=== PATIENT | female | born 1980 | race Hispanic/Latino ===

== ENCOUNTER 2017-12-06 21:54 | Day surgery (SDC) | payer OTHER ==
[2017-12-06 22:40] VITALS: BP 115/59; TEMP 98.8; BMI 32.2
--- NOTE | 2017-12-06 23:02 | PDOC.LDHP ---
Labor and Delivery H&P Chief complaint: other (dysuria and hematuria) HPI: Ms Rodas is a 37yo at 20.0 weeks by LMP presenting with dysuria and hematuria that started yesterday. Also endorses hesitancy. Reports mild abdominal pain, denies flank pain. Pt reports a small amount of blood on the toilet paper. FM (-), LOF (-), Contractions (-) Current gestational age (weeks): 20 (20.0) Due date: 04/25/18 Dating criteria: last menstrual period Grav: 4 Para: 3 (2942) OB History Details: 3 prior pregnancies with no complications born term by Current complications: none Current medications: pre-nannette vitamins Previous surgical history: none Social history: none - Physical Exam Vital signs reviewed and normal: yes General: NAD Heart: RRR Lungs: CTAB Abdomen: gravid Extremeties: no edema FHT: category 1 (145/moderate/no accels or decels) - OB Labs Blood type: unknown RH: unknown Antibody Screen: unknown HIV: unknown RPR: unknown HEPSAg: unknown 1 hour GCT: unknown GBS: unknown Urine drug screen: not done - Assessment 37yo female at 20.0 wks presenting with dysuria and hematuria c/w symptomatic cystitis. No evidence of upper urinary tract infection. - Plan -: Symptomatic cystitis in Straight cath UA with reflux micro, culture if indicated 1L bolus LR Depending on UA results treat empirically with Macrobid <Mirlande Gomes - Last Filed: 12/06/17 23:53> - Plan Plan: other (Patient seen. Patient has full handwritten Faculty H&P in chart.) <Antoine Crenshaw - Last Filed: 12/07/17 05:45> Allergies/Adverse Reactions: Allergies Allergy/AdvReac Type Severity Reaction Status Date / Time No Known Allergies Allergy Unverified 12/06/17 22:33
--- NOTE | 2017-12-06 23:28 | PDOC.EVN ---
Event Note - Event Note Event Note: @3586: Faculty note: patient seen. 37 yo at 20 weeks 0 days, no VB, no LOF, c/o burning on urination. Also with hesitancy and urgency. Residents first evaluated. 20 weeks 0 days with complaint of dysuria, no fever no CVAT. Suspect cystitis. UA with reflex micro pending (cath UA). Patient has full handwritten H&P in progress notes. Please see for full information
[2017-12-06] MEDS ORDERED: Lactated Ringer's 1,000 ML IV SCH (23:30)
[2017-12-06 23:37] LABS: Bilirubin Negative (Negative); Blood, Urine Large (Negative); Clarity CLOUDY (Clear); Glucose, Urine (Dipstick) Negative (Negative); Leukocyte Moderate (Negative); Nitrite Negative (Negative); Protein, Urine (Dipstick) Negative (Neg-Trace); Specific Gravity, Urine 1.019 (1.002-1.036); Urobilinogen 0.2 mg/dL (0.2-1.0)
[2017-12-06 23:38] LABS: Bacteria/HPF 2+ HPF (None Seen); Pathc Cast-AUWi Flag 0.72 (0-2.49); RBC/HPF GREATER THAN 50-TNTC HPF (0-3); Squamous Epithelial None Seen HPF (0-3); WBC/HPF 21-50 HPF (0-3)
[2017-12-06 23:46] LABS: Hyaline Casts/LPF NONE SEEN LPF (0-3 Hyaline)
[2017-12-07] MEDS ORDERED: Nitrofurantoin Monohyd/M-Cryst 100 MG CAP PO SCH (00:01)
--- NOTE | 2017-12-07 00:10 | PDOC.EVN ---
Event Note - Event Note Event Note: UA with evidence UTI. RX with macrobid x 7 days
== END 2017-12-07 00:50 | disposition home or self-care (01) ==
LOC: L&D/OP 21:54
PROVIDERS: ATTEND Obstetrics & Gynecology
DX: O23.12 Infections of bladder in pregnancy, second trimester (principal); Z3A.20 20 weeks gestation of pregnancy; Z37.9 Outcome of delivery, unspecified
CPT/HCPCS: 51701; 81003; 81015; 87077; 87086; 87186; 96360; 99283

== ENCOUNTER 2019-07-18 12:56 | Emergency (ER) | payer OTHER ==
[2019-07-18 13:33] LABS: Bilirubin Negative (Negative); Blood, Urine Negative (Negative); Clarity Clear (Clear); Glucose, Urine (Dipstick) Normal (Negative); Leukocyte Negative Leu/uL (Negative); Nitrite Negative (Negative); Protein, Urine (Dipstick) Negative (Neg-Trace); Urobilinogen Normal mg/dL (Less than 2)
[2019-07-18 13:53] LABS: #Eosinphils 0.1 thou/uL (0.0-0.7); #Lymphocytes 1.8 thou/uL (1.20-3.40); #Monocytes 0.4 thou/uL (0.11-0.59); #Neutrophils 5.8 thou/uL (1.40-6.50); %Basophils 0.6 % (0.0-1.0); %Eosinophils 1.2 % (0.0-10.0); %Lymphocytes 22.1 % (21.0-51.0); %Monocytes 5.4 % (0.0-10.0); %Neutrophils 70.7 % (42.0-75.0); Hemoglobin 11.6 g/dL (12.0-16.0); Mean Corpuscular HGB CONC 32.8 g/dL (32.0-36.0); Mean Corpuscular Hemoglobin 27.3 pg (27.0-31.0); Mean Corpuscular Volume 83.2 fL (78.0-98.0); Mean Platelet Volume 8.8 fL (7.4-10.4); Platelet Count 277 thou/uL (130-400); RBC Distribution Width 14.3 % (11.5-14.5); Red Blood Cell (RBC) Count 4.25 mill/uL (4.20-5.40); White Blood Cell (WBC) Count 8.1 thou/uL (4.8-10.8)
[2019-07-18 14:11] LABS: ALT (SGPT) 22 U/L (8-55); AST (SGOT) 17 U/L (5-34); Albumin 3.7 g/dL (3.5-5.0); Alkaline Phosphatase 85 U/L (40-110); Anion Gap 13 mmol/L (10-20); BUN (Urea Nitrogen) 7 mg/dL (7.0-18.7); Bilirubin, Total 0.2 mg/dL (0.2-1.2); Calc. Creatinine Clearance 0 mL/min (70-130); Calcium 8.7 mg/dL (7.8-10.44); Carbon Dioxide 18 mmol/L (22-29); Chloride 110 mmol/L (98-107); Estimated GFR-MDRD Greater than 90; Globulin 2.7 g/dL (2.4-3.5); Glucose 81 mg/dL (70-105); Potassium 3.9 mmol/L (3.5-5.1); Protein, Total 6.4 g/dL (6.0-8.3); Sodium 137 mmol/L (136-145)
--- NOTE | 2019-07-18 14:34 | ULT ---
OB ULTRASOUND: 07/17/28 HISTORY: female with slight vaginal bleeding. TECHNIQUE: Multiplanar john scale and color Doppler images were obtained in a transabdominal ultrasound. S pectral analysis of the Doppler waveforms of the visualized ovaries were performed. FINDINGS: There is an intrauterine gestational sac. This contains a pole with crown-rump length of 2.84 c m. This estimates gestational age at 9 weeks, 5 days. A heart rate is detected at 162 beats per minute. A 6.7 cm fibroid is seen inferior to the gestational sac within the uterus. No free fluid is seen in the pelvis. The right ovary was not visualized. The left ovary is normal in appearance and demonstrates normal internal flow. IMPRESSION: 1. Single live intrauterine with estimated age of 9 weeks, 5 days. 2. Uterine fibroid. POS: EAA
== END 2019-07-18 15:09 | disposition home or self-care (01) ==
LOC: ERS 12:56
DX: O20.0 Threatened abortion (principal); Z3A.08 8 weeks gestation of pregnancy
CPT/HCPCS: 36415; 76856; 80053; 81003; 84702; 85025; 86900; 86901; 93976

== ENCOUNTER 2020-02-06 12:18 | Outpatient (CLI) | payer OTHER ==
[2020-02-09 00:12] LABS: SARS-CoV-2 MS2 Positive; SARS-CoV-2 N Gene Negative; SARS-CoV-2 S Gene Negative; SARS-CoV-2 by NAA Not Detected (Not Detected); SARS-CoV-2 orf1ab Negative
== END 2020-02-06 12:19 | disposition home or self-care (01) ==
LOC: LABBT 12:18
PROVIDERS: ATTEND Family Medicine
DX: Z20.828 Contact with and (suspected) exposure to other viral communicable diseases (principal)
CPT/HCPCS: 87635; U0003

== ENCOUNTER 2020-02-11 05:23 | Inpatient (IN) | payer MEDICAID, OTHER, SELFPAY ==
[2020-02-11] MEDS ORDERED: Promethazine HCl 25 MG/ML VIAL IM PRN ×2 (05:39→10:05)
[2020-02-11] MEDS ORDERED: Ondansetron PF 4 MG/2 ML Vial IVP PRN ×3 (05:39→12:06)
[2020-02-11] MEDS ORDERED: hydrALAZINE 20 MG/ML VIAL SLOW IVP PRN ×2 (05:39→12:06)
[2020-02-11] MEDS ORDERED: Lactated Ringer's 1,000 ML IV SCH (05:45)
[2020-02-11 05:57] VITALS: BMI 37.8
[2020-02-11] MEDS ORDERED: Azithromycin 500 MG in Sodium Chloride 0.9% 250 ML 250 ML IVPB SCH (06:00)
[2020-02-11] MEDS ORDERED: Bicitra 30 ML UDCUP PO SCH (06:00)
[2020-02-11] MEDS ORDERED: CEFAZOLIN 2 GM in Premix Bag 1 BAG IVPB SCH (06:00)
[2020-02-11 06:12] LABS: Hemoglobin 13.2 g/dL (12.0-16.0); Mean Corpuscular HGB CONC 34.1 g/dL (32.0-36.0); Mean Corpuscular Hemoglobin 29.3 pg (27.0-31.0); Mean Corpuscular Volume 85.8 fL (78.0-98.0); Mean Platelet Volume 8.9 fL (7.4-10.4); Platelet Count 244 thou/uL (130-400); RBC Distribution Width 13.9 % (11.5-14.5); Red Blood Cell (RBC) Count 4.52 mill/uL (4.20-5.40); White Blood Cell (WBC) Count 9.1 thou/uL (4.8-10.8)
--- NOTE | 2020-02-11 06:29 | PDOC.FPROB ---
FMR OB H&P: HPI - History of Present Illness Chief Complaint: rLTCS Indentification: History of Present Illness: 40YO @ 39WGA presenting for a rLTCS. Reports regular movement. No LOF/VB/VD or contractions. Denies any complications this other than a UTI earlier in the . Denies any CLINTON, vision changes, chest pain, SOB, or edema. Primary Care Physician: YESSI Gregorio FMR OB H&P: Current - Care : 5 Para: 4004 Gestational age: 39 weeks - OB Labs Blood type: A RH: positive Antibody Screen: negative HIV: negative RPR: negative HepBsAg: negative Rubella: immune Gonorrhea: negative Chlamydia: negative A1c: WNLs GBS: negative H&H: 13.2/38.8 today Platelets: 244 today - First Trimester Ultrasound First trimester: sIUP. Dating c/w LMP. JERED 02/18/2020 - Additional Ultrasound Additional: growth scan on 12/26/19: 51.2% by Hadlock, breech, fundal placenta FMR OB H&P: History - Past Medical History PMH: obesity - OB History OB History: 3 post-term SVDs 1 pLTCS for severe pre-e & NRFHTS @ 39 weeks Hx SGA in prior - [employer] MEMBER History [employer] MEMBER History: Pap NILM/HPV neg 11/2017 - Surgical History Sx History: LTCS x1 - Social History Social History: No TAD - Family History Family History: Paternal grandmother uterine CA & maternal aunt breast CA FMR OB H&P: Medications - Current Home Medications: Medication Instructions Recorded Confirmed Type Aspirin [Ecotrin Low Strength] 81 mg PO DAILY 02/11/20 02/11/20 History Vitamin 1 tablet PO DAILY 02/11/20 02/11/20 History Allergies/Adverse Reactions: Allergies Allergy/AdvReac Type Severity Reaction Status Date / Time No Known Allergies Allergy Verified 02/11/20 05:57 FMR OB H&P: ROS - Review of Systems General: denies: fever/chills, weight/appetite/sleep changes Eyes: denies: vision changes ENT: denies: nasal congestion, sore throat Cardiovascular: denies: chest pain, edema Respiratory: denies: cough, shortness of breath Gastrointestinal: denies: abdominal pain, nausea, vomiting Genitourinary (Female): denies: dysuria, hematuria, vaginal discharge, vaginal bleeding, contractions Musculoskeletal: denies: swelling, arthritis/arthralgias Neurologic: denies: headache Integumentary: denies: itching, rash Psychological: denies: depression, anxiety FMR OB H&P: Vital Signs - Maternal Vital signs: Vital Signs - First Documented Temp Pulse Resp BP 98.0 F 68 14 120/73 02/11/20 05:47 02/11/20 05:47 02/11/20 05:47 02/11/20 05:47 - Heart Tones Baseline: 130 Variability: moderate Acceleration: present Deceleration: absent Category: category 1 Olivarez contractions every: none noted FMR OB H&P: Physical Exam - Physical Exam General: NAD, awake, alert and oriented HEENT: normocephalic and atraumatic, MMM, grossly normal vision, grossly normal hearing Neck: supple, FROM Heart: RRR, normal S1/S2, no murmurs/rubs/gallops General: CTAB, no respiratory distress Abdomen: gravid Musculoskeletal: normal gait and station, FROM in all four extremities Neurological: cranial nerves II through XII intact, sensation to pain,touch and proprioception grossly normal, no focal deficit Psychiatric: intact recent and remote memory, good judgement and insight, normal mood and affect - Pelvic Exam Vulva: normal hair distribution, appropriate reji stage Membranes: intact Presentation: cephalic, oblique FMR OB H&P: Results - Labs Lab results: Laboratory Results - last 24 hr 02/11/20 05:55 WBC 9.1 RBC 4.52 Hgb 13.2 Hct 38.8 MCV 85.8 MCH 29.3 MCHC 34.1 RDW 13.9 Plt Count 244 MPV 8.9 FMR OB H&P: A/P - Problem List (1) Term Current Visit: Yes Status: Acute Code(s): Z34.90 - ENCNTR FOR SUPRVSN OF NORMAL , UNSP, UNSP TRIMESTER (2) Previous section complicating Current Visit: Yes Status: Acute Code(s): O34.219 - MATERNAL CARE FOR UNSP TYPE SCAR FROM PREVIOUS DEL (3) Obesity Current Visit: Yes Status: Acute Code(s): E66.9 - OBESITY, UNSPECIFIED (4) History of pre-eclampsia in prior , currently Current Visit: Yes Status: Acute Code(s): O09.299 - SUPRVSN OF PREG W POOR REPRODCTV OR OBSTET HISTORY, UNSP TRI (5) History of prior with SGA Current Visit: Yes Status: Acute Code(s): Z87.59 - PERSONAL HISTORY OF COMP OF PREG, CHLDBRTH AND THE PUERP Disposition: 40YO @ 39 WGA presenting for a rLTCS. rLTCS w/ RRS: - Initially indicated for not only h/p prior section but for breech presentation as well. Fetus is oblique, cephalic on bedside sono today. FHTs reassuring with bsseline 130s & accels, good variability, no decels. Maternal VS WNLs. Will proceed with planned WAQAR rLTCS. Hx pre-e: - Has been on ASA for PPX this with no BP issues. Will monitor BPs closely during admission. Hx SGA in prior : - Has been following with MFM this w/ last growth scan per chart review on 12/26/19 WNLs w/ 51.2% by [place]. AMA: Has been on ASA PPX & following w/ MFM. Negative NIPT. Grandmultip: Typed and crossed 2U PRBCs prior to surgery. Obesity: - Aware, A1c & TSH WNLs w/ IOB labs. Will encourage weight loss PP. FH of uterine & breast CA: - Aware, approved for RRS to be done in C/S. Discussion: Date/Time: 02/11/20 5379 This H&P was discussed with Dr. Olivo who agrees with the above documentation and plan. Addendum - Attending - Attending Attestation Date/Time: 02/11/20 2107 I personally evaluated the patient and discussed the management with Dr. Gregorio. I agree with the History, Examination, Assessment and Plan documented above with any addition or exceptions noted below. Discussed risks of above procedures and ensured all questions answered. She desires to proceed.
[2020-02-11 06:54] LABS: HBSAg Index 0.13 S/CO (0-0.99); Hep B Surf Ag Non-Reactive S/CO (NonReactive)
[2020-02-11 06:55] LABS: Syphilis Antibody Nonreactive (Nonreactive); Syphilis Antibody Index 0.03 S/CO (<1.00 Non-Reactive)
[2020-02-11] MEDS ORDERED: Dexamethasone 4 mg/ml Vial ONE (07:59)
[2020-02-11] MEDS ORDERED: PHENYLEPHRINE-NS 100 MCG/ML 10 ML SYRINGE ONE (07:59)
[2020-02-11] MEDS ORDERED: Ketorolac Tromethamine 30 MG/ML VIAL ONE (07:59)
[2020-02-11] MEDS ORDERED: Oxytocin 10 UNITS/ML VIAL ONE (07:59)
[2020-02-11] MEDS ORDERED: Ondansetron PF 4 MG/2 ML Vial ONE (07:59)
[2020-02-11] MEDS ORDERED: ePHEDrine 50 MG/ML VIAL ONE (07:59)
[2020-02-11] MEDS ORDERED: Morphine PF 10 MG/10 ML VIAL ONE (08:00)
[2020-02-11] MEDS ORDERED: Carboprost 250 MCG/ML AMP ONE (08:55)
[2020-02-11] MEDS ORDERED: Methylergonovine 0.2 MG/ML VIAL ONE (08:55)
[2020-02-11] MEDS ORDERED: Ketorolac Tromethamine 30 MG/ML VIAL IVP PRN (10:05)
[2020-02-11] MEDS ORDERED: Promethazine HCl 25 MG SUPP PR PRN (10:05)
[2020-02-11] MEDS ORDERED: Naloxone HCl 0.4 mg/ml Vial IV PRN (10:05)
[2020-02-11] MEDS ORDERED: diphenhydrAMINE 50 MG/ML VIAL IVP PRN (10:05)
[2020-02-11] MEDS ORDERED: HYDROmorphone 2 MG/ML VIAL SLOW IVP PRN (10:05)
[2020-02-11] MEDS ORDERED: Meperidine HCl/PF 25 MG/ML VIAL SLOW IVP PRN (10:05)
[2020-02-11] MEDS ORDERED: Ondansetron HCl/PF 4 MG/2 ML Vial IVP PRN (10:05)
[2020-02-11] MEDS ORDERED: L&D-Morphine 4 MG/ML VIAL SLOW IVP PRN (10:05)
[2020-02-11] MEDS ORDERED: Naloxone HCl 0.4 mg/ml Vial IVP PRN ×2 (10:05)
[2020-02-11] MEDS ORDERED: Communication Order-Pharmacy FS SCH (10:15)
[2020-02-11] MEDS ORDERED: Ketorolac Tromethamine 30 MG/ML VIAL IVP SCH (10:15)
[2020-02-11] MEDS ORDERED: Lanolin Ointment 7 GM TUBE TOP PRN (12:06)
--- NOTE | 2020-02-11 14:34 | PDOC.BPN ---
- Brief Progress Note Encounter Date: 02/11/20 Encounter Time: 14:00 S: Pt resting well, states pain is well controlled. bonding well with . denies SOB, CP, CLINTON. has not been up to walk yet. O: vitals: BP: 113/60, 97.7 F temp, 79 HR, 18 RR. gen: resting, NAD heart: RRR, no M/G/R lungs: CTAB, no respiratory distress, good air movement ext: neg homans sign abd: bandage over surgical incision clean and dry. Appropriate TTP. Firm uterine fundus at umbilicus. A&P: Post op approx 4 hrs from rLTCS and RRS - pt tolerating pain well, continue norco Q4H, PRN, bowel regimen and motrin. - hayward out once able to ambulate - tolerating diet well, continue to advance as tolerated. - vitals Q4
[2020-02-11] MEDS: Ibuprofen 800 MG TAB PO SCH ×2 (18:07→20:41)
[2020-02-11] MEDS: Docusate Calcium (SURFAK) 240 MG CAP PO SCH (20:41)
[2020-02-11] MEDS ORDERED: Ferrous Sulfate 325 MG TAB PO SCH (21:00)
[2020-02-12] MEDS: Ibuprofen 800 MG TAB PO SCH ×3 (04:35→20:24)
--- NOTE | 2020-02-12 06:11 | PDOC.OBPPN ---
FMR OB PN: Subj - Interval History Hospital Day: 2 Day: 1 Chief Complaint: none Indentification: G5 now P5005 who is PP day #1 s/p rLTCS w/ RRS Interval History: Tolerating PO, ambulating, & voiding normally. Pain somewhat controlled. FMR OB PN: Obj - Maternal Vital signs: BP: 85/52 HR: 76 RR: 16 Tmax: 98.5F Pox: 96% on RA Wt: 84 kg - Urine output I&O: 02/10/20 02/11/20 02/12/20 06:59 06:59 06:59 Output Total 5158 Balance -5158 - Lochia Lochia: WNLs - Pain Management Pain scale: 7 Intervention: oral medication FMR OB PN: Exam - Physical Exam General: NAD, awake, alert and oriented HEENT: normocephalic and atraumatic, MMM, grossly normal vision, grossly normal hearing Neck: supple, FROM Heart: RRR, normal S1/S2, no murmurs/rubs/gallops, no edema General: CTAB, no respiratory distress Abdomen: soft, fundus(cm) (firm just below umbilicus), bowel sound present Musculoskeletal: normal gait and station, FROM in all four extremities Neurological: cranial nerves II through XII intact, sensation to pain,touch and proprioception grossly normal, no focal deficit Skin: no rash, good tugor : incision healing well, no erythema, no edema, no drainage, appropriately tender Psychiatric: intact recent and remote memory, good judgement and insight, normal mood and affect - Pelvic Exam : no discharge, no edema, normal lochia FMR OB PN: Data - Labs Lab results: Laboratory Results - last 24 hr 02/11/20 02/11/20 02/11/20 05:55 05:55 05:55 WBC 9.1 RBC 4.52 Hgb 13.2 Hct 38.8 MCV 85.8 MCH 29.3 MCHC 34.1 RDW 13.9 Plt Count 244 MPV 8.9 Syphilis IgG/IgM Ab Nonreactive Hep Bs Antigen Non-Reactive Blood Type Antibody Screen Crossmatch 02/11/20 05:55 WBC RBC Hgb Hct MCV MCH MCHC RDW Plt Count MPV Syphilis IgG/IgM Ab Hep Bs Antigen Blood Type A POSITIVE Antibody Screen NEGATIVE Crossmatch See Detail FMR OB PN: A/P - Problem List (1) Term Current Visit: Yes Status: Resolved Code(s): Z34.90 - ENCNTR FOR SUPRVSN OF NORMAL , UNSP, UNSP TRIMESTER (2) Previous section complicating Current Visit: Yes Status: Chronic Code(s): O34.219 - MATERNAL CARE FOR UNSP TYPE SCAR FROM PREVIOUS DEL (3) Obesity Current Visit: Yes Status: Acute Code(s): E66.9 - OBESITY, UNSPECIFIED (4) History of pre-eclampsia in prior , currently Current Visit: Yes Status: Chronic Code(s): O09.299 - SUPRVSN OF PREG W POOR REPRODCTV OR OBSTET HISTORY, UNSP TRI (5) History of prior with SGA Current Visit: Yes Status: Chronic Code(s): Z87.59 - PERSONAL HISTORY OF COMP OF PREG, CHLDBRTH AND THE PUERP (6) care following delivery Current Visit: Yes Status: Acute Code(s): Z39.2 - ENCOUNTER FOR ROUTINE FOLLOW-UP Disposition: 40YO who is PP day #1 s/p rLTCS w/ RRS @ 39 WGA. PP day #1 s/p rLTCS w/ RRS: - Patient is tolerating PO, ambulating, & voiding normally this AM. Reports normal lochia similar to menstruation & pain is somewhat controlled with PO meds. Not yet passing gas but denies abdominal distension or bloating. VS WNLs since delivery. Continue routine post-C/S care. Hx pre-e: - Was on ASA for PPX this with no BP issues. Will monitor BPs closely during admission. Hx SGA in prior : - Has been following with MFM this w/ last growth scan per chart revie w on 12/26/19 WNLs w/ 51.2% by Hadlock. AGA. AMA: - Aware, was on ASA PPX & following w/ MFM this with negative NIPT. RRS done w/ C/S for contraception. Grandmultip: - Aware, now s/p RRS. Obesity: - Aware, A1c & TSH WNLs w/ IOB labs. Will encourage weight loss PP. FH of uterine & breast CA: - Aware, is post-op day #1 from C/S w/ RRS. Dispo: Anticipate d/c home tomorrow. Discussion: Date/Time: 02/12/20608 This H&P was discussed with Dr. Olivo who agrees with the above documentation and plan. Addendum - Attending - Attending Attestation Date/Time: 02/12/20 142 I personally evaluated the patient and discussed the management with the team. I agree with the History, Examination, Assessment and Plan documented above with any addition or exceptions noted below.
[2020-02-12 06:24] LABS: Hemoglobin 10.6 g/dL (12.0-16.0); Mean Corpuscular HGB CONC 33.6 g/dL (32.0-36.0); Mean Corpuscular Hemoglobin 29.4 pg (27.0-31.0); Mean Corpuscular Volume 87.3 fL (78.0-98.0); Mean Platelet Volume 8.6 fL (7.4-10.4); Platelet Count 209 thou/uL (130-400); RBC Distribution Width 13.9 % (11.5-14.5); White Blood Cell (WBC) Count 14.5 thou/uL (4.8-10.8)
[2020-02-12] MEDS: HYDROcodone/Acetaminophen 5/325 mg Tablet PO PRN ×3 (07:10→18:40)
[2020-02-12] MEDS ORDERED: diphenhydrAMINE 25 MG CAP PO PRN (07:12)
[2020-02-12] MEDS: Prenatal Vitamin 1 TAB PO SCH (08:28)
[2020-02-12] MEDS: Docusate Calcium (SURFAK) 240 MG CAP PO SCH ×2 (08:28→20:24)
[2020-02-12] MEDS ORDERED: Adacel (T-DAP) 0.5 ML SYRINGE IM ONE (09:00)
[2020-02-13] MEDS: Ibuprofen 800 MG TAB PO SCH ×2 (04:55→13:04)
--- NOTE | 2020-02-13 07:19 | PDOC.OBPPN ---
FMR OB PN: Subj - Interval History Hospital Day: 3 Day: 2 Chief Complaint: none Indentification: 40YO G5 now P5005 who is PP day #2 s/p rLTCS w/ RRS @ 39 WGA Interval History: Vitals WNLs. Still tolerating PO & now passing gas. Pain better w/ norco. FMR OB PN: Obj - Maternal Vital signs: BP: 103/56 HR: 69 RR: 16 Tmax: 97F Pox: 96% on RA Wt: 84 kg - Urine output I&O: 02/12/20 02/13/20 02/14/20 06:59 06:59 06:59 Output Total 5158 3 Balance -5158 -3 - Lochia Lochia: WNLs - Pain Management Pain scale: 0 Intervention: oral medication FMR OB PN: Exam - Physical Exam General: NAD, awake, alert and oriented HEENT: normocephalic and atraumatic, MMM, grossly normal vision, grossly normal hearing Neck: supple, FROM Heart: RRR, normal S1/S2, no edema General: CTAB, no respiratory distress Abdomen: soft, fundus(cm) (firm just above umbilicus) Musculoskeletal: normal gait and station, FROM in all four extremities Neurological: cranial nerves II through XII intact, sensation to pain,touch and proprioception grossly normal, no focal deficit : incision healing well, no erythema, no edema, no drainage, appropriately tender Psychiatric: intact recent and remote memory, good judgement and insight, normal mood and affect - Pelvic Exam : no discharge, no edema, normal lochia FMR OB PN: A/P - Problem List (1) Term Status: Resolved Code(s): Z34.90 - ENCNTR FOR SUPRVSN OF NORMAL , UNSP, UNSP TRIMESTER (2) Previous section complicating Status: Chronic Code(s): O34.219 - MATERNAL CARE FOR UNSP TYPE SCAR FROM PREVIOUS DEL (3) Obesity Status: Acute Code(s): E66.9 - OBESITY, UNSPECIFIED (4) History of pre-eclampsia in prior , currently Status: Chronic Code(s): O09.299 - SUPRVSN OF PREG W POOR REPRODCTV OR OBSTET HISTORY, UNSP TRI (5) History of prior with SGA Status: Chronic Code(s): Z87.59 - PERSONAL HISTORY OF COMP OF PREG, CHLDBRTH AND THE PUERP (6) care following delivery Status: Acute Code(s): Z39.2 - ENCOUNTER FOR ROUTINE FOLLOW-UP Disposition: 40YO who is PP day #2 s/p rLTCS w/ RRS @ 39 WGA. PP day #2 s/p rLTCS w/ RRS: - Patient is tolerating PO, ambulating, passing gas, & voiding normally this AM. Reports normal lochia similar to menstruation & pain is somewhat controlled with PO meds. VS WNLs since delivery. Continue routine post-C/S care. Hx pre-e: - Was on ASA for PPX this with no BP issues. Will continue to monitor BPs closely during admission. Hx SGA in prior : - Has been following with MFM this w/ last growth scan per chart review on 12/26/19 WNLs w/ 51.2% by [place]. AGA. AMA: - Aware, was on ASA PPX & following w/ MFM this with negative NIPT. RRS done w/ C/S for contraception. Grandmultip: - Aware, now s/p RRS. Obesity: - Aware, A1c & TSH WNLs w/ IOB labs. Will encourage weight loss PP. FH of uterine & breast CA: - Aware, is post-op day #2 from C/S w/ RRS. Dispo: Anticipate d/c home today w/ f/u @ [facility] in 1 week. Discussion: Date/Time: 02/13/20 8377 This H&P was discussed with Dr. Olivo who agrees with the above documentation and plan. Addendum - Attending - Attending Attestation Date/Time: 02/13/20 5307 I personally evaluated the patient and discussed the management with resident team I agree with the History, Examination, Assessment and Plan documented above with any addition or exceptions noted below. Pt doing well. No acute changes. Meeting milestones. No evidence of infection. Lochia appropriate. Ok to d/c to home. Follow up next week for incision check. Shana
[2020-02-13 08:01] VITALS: BP 112/60; TEMP 98.3
[2020-02-13] MEDS: Prenatal Vitamin 1 TAB PO SCH (09:16)
[2020-02-13] MEDS: Docusate Calcium (SURFAK) 240 MG CAP PO SCH (09:16)
[2020-02-13] MEDS: HYDROcodone/Acetaminophen 5/325 mg Tablet PO PRN (13:00)
--- NOTE | 2020-02-15 18:58 | OP ---
DATE OF PROCEDURE: 02/11/2020 RESIDENT SURGEON: Bethany Gregorio MD VIDEO PRESENTATION OPERATOR SURGEON: Nicolette Lee DO ATTENDING SURGEON: Deep Olivo MD PROCEDURE PERFORMED: Repeat low transverse section with risk-reducing salpingectomy. PREOPERATIVE DIAGNOSES: 1. Term intrauterine . 2. Previous x1. 3. Advanced maternal age. 4. Grand multiparity. POSTOPERATIVE DIAGNOSES: 1. Term intrauterine , delivered. 2. Previous now x2. 3. Advanced maternal age. 4. Grand multiparity. ANESTHESIA: Spinal. INDICATIONS FOR PROCEDURE: The patient is a 40-year-old, G5, P4-0-0-4 female at 39 weeks gestation, who presents for repeat scheduled section with risk-reducing salpingectomy. DESCRIPTION OF PROCEDURE: After risks, benefits, and alternatives were explained to the patient, she gave informed consent. Preoperative antibiotics included cefazolin 2 g IV. The patient was taken to the operating room and spinal anesthesia was initiated. She was placed in the supine position with the left tilt and prepped and draped in usual sterile fashion. A Pfannenstiel incision was made with scalpel and carried down to the level of the fascia, which was sharply nicked. The fascial cut was extended bilaterally with Russo scissors. The inferior and superior edges of the cut fascial edges were elevated with Juanito clamps, and the underlying rectus muscles were sharply and bluntly dissected free. The recti were divided digitally and retracted manually. The peritoneum was entered bluntly and retracted manually. Bladder blade was placed. Bladder flap was attempted with Metzenbaum scissors, but bladder was unable to be successfully , so the bladder blade remained in place and a low transverse score was made with a scalpel and the uterus was entered midline with a scalpel. Clear fluid was seen. The hysterotomy was extended manually. The was noted to be vertex and was easily delivered by fundal pressure. Mouth and nares were bulb suctioned. Cord clamped and cut and grossly normal. Female was handed to waiting nurse. Cord blood was obtained. Placenta was manually extracted and found to be intact with three-vessel cord and discarded. The uterus was externalized and the endometrium was curetted with a dry lap. The bladder blade was replaced and the uterus was closed with a running locking 1-0 Monocryl suture. Following closure of the hysterotomy, a risk-reducing salpingectomy was performed. The bilateral approximately three windows were made in adnexa beneath the fallopian tube using electrocautery. The vessel supplying the fallopian tube and the proximal most end of the fallopian tubes were tied off using 3-0 chromic free ties. The fallopian tube was then excised using scissors. Electrocautery was used for hemostasis at the excision sites. The fallopian tube was then sent to Pathology for pathologic analysis. This procedure was repeated for the left fallopian tube. Following the risk-reducing salpingectomy, the uterus was internalized and the hysterotomy was noted to have some mild oozing along the middle and left lateral most portion of the hysterotomy. This bleeding was ligated using two 1-0 Monocryl [id number] sutures, after which hemostasis was noted. The fascia was then closed with a running nonlocking 0 PDS suture. The subcutaneous tissue was irrigated and a few free bleeders were cauterized with electrocautery to achieve hemostasis. The subcutaneous tissue was closed with a running nonlocking 3-0 Vicryl suture. The skin was then approximated using a 4-0 Monocryl suture and a pressure dressing was placed. All counts were correct. The patient tolerated the procedure well and was taken to the recovery room in stable condition. QUANTITATIVE BLOOD LOSS: 575 mL. COMPLICATIONS: None. SPECIMENS: 1. Cord blood sent to lab for blood type. 2. Bilateral fallopian tubes sent to the lab for pathologic analysis. FINDINGS: 1. Grossly normal female with Apgars of 8 and 9. Grossly normal placenta with three-vessel cord discarded. Bilateral fallopian tubes sent to Path as noted above. 2. Multiple uterine leiomyoma measuring from approximately 3 x 4 cm in diameter to approximately 0.5 to 1 cm in diameter noted on the anterior and superior surface of the uterus. DRAIN: Marsh to gravity draining clear urine. Job ID: [id number]
--- NOTE | 2020-02-16 05:50 | PQF ---
CLINICAL DOCUMENTATION CLARIFICATION FORM: Dear : Deep Olivo Date / Time: 02/16/2020 05:49 Please exercise your independent, professional judgment in responding to the clarification form. Clinical indicators are provided on the bottom of this form for your review Can you please clarify the diagnosis being treated? Please check appropriate box(es): [ ] Associated Diagnosis: Acute blood loss anemia [ ] Not clinically significant laboratory findings [x ] Other diagnosis iron deficiency anemia [ ] Unable to determine Physician Signature: Date/Time: For continuity of documentation, please document condition throughout progress notes and discharge summary. Thank You. To be completed by CDI/Coding staff for physician review: Present Clinical Indicators - Signs / Symptoms / Labs Results and Location in Medical Record [x] RBC=3.60 Hgb=10.6 Hct=31.4 Laboratory 02/11 [x] Estimated blood loss: 575ml OP Note 02/10 [x] BP: 02/1067=388/55 02/11=85/52 02/12=99/54 Vital Signs 02/10 Present Risk Factors Results and Location in Medical Record [x] 39 weeks gestation OP Note 02/10 [x] s/p CS delivery OP Note 02/10 Present Treatments Results and Location in Medical Record [x] IVF MAR 02/10 [x] Ferrous Sulfate 325mg Oral JUN 17 [x] Laboratory Monitoring Collected 02/11 [facility] Signature:Keri Lyon Phone #: ext [phone] Date/Time: 02/16/2020 05:49 This is a permanent part of the Medical Record [facility]
== END 2020-02-13 13:20 | disposition home or self-care (01) | DRG 785 ==
LOC: L&D 05:23 → 3SE 12:32
PROVIDERS: ADMIT Family Medicine; ATTEND Family Medicine
PROC: 10D00Z1 Extraction of Products of Conception, Low, Open Approach (ICD-10-PCS; principal; 2020-02-11)
PROC: 0UB70ZZ Excision of Bilateral Fallopian Tubes, Open Approach (ICD-10-PCS; 2020-02-11)
DX: O34.211 Maternal care for low transverse scar from previous cesarean delivery (principal); O99.214 Obesity complicating childbirth; E66.9 Obesity, unspecified; O14.94 Unspecified pre-eclampsia, complicating childbirth; O34.13 Maternal care for benign tumor of corpus uteri, third trimester; D25.9 Leiomyoma of uterus, unspecified; Z3A.39 39 weeks gestation of pregnancy; Z37.0 Single live birth; Z79.82 Long term (current) use of aspirin; O09.523 Supervision of elderly multigravida, third trimester; O90.81 Anemia of the puerperium; D50.9 Iron deficiency anemia, unspecified
CPT/HCPCS: 36415; 51702; 85027; 86780; 86850; 86900; 86901; 87340; 88305; J0690; J1100; J1885; J2210; J2270; J2405; J3490; Q0163

== ENCOUNTER 2024-05-15 15:29 | Outpatient (CLI) | payer BC | END 2024-05-15 15:30 | disposition home or self-care (01) | LOC: BICRAD 15:29 | PROVIDERS: ATTEND Nurse Practitioner Family | DX: M25.561 Pain in right knee (principal); M25.562 Pain in left knee ==